=== PATIENT | female | born 1945 | race Caucasian/White ===

== ENCOUNTER 2019-05-21 14:44 | Emergency (ER) | payer MEDICARE, OTHER, SELFPAY ==
--- NOTE | 2019-05-21 14:59 | ED.FALL ---
HPI - Fall General Chief Complaint: Fall Stated Complaint: GLF Time Seen by Provider: 05/21/19 14:49 Source: EMS Mode of arrival: EMS Limitations: no limitations History of Present Illness HPI Narrative: Patient is a 73-year-old female who presents with by bilateral arm pain. She was caring a tray when she tripped and fell and landed with both her arms above her. She has severe pain left arm is held superiorly over her face. She has no numbness or tingling in her hands. No other injury no head injury. No loss of consciousness no nausea. MD complaint: fall Onset (ago): minute(s) Fall from: standing Fall witnessed: yes, by family Place fall occurred: home Loss of consciousness: none Prolonged down time: no Related Data Home Medications Medication Instructions Recorded Confirmed Probiotic 1 cap PO DAILY #0 09/06/17 05/21/19 ascorbic acid (vitamin C) 1 tab PO DAILY #0 09/06/17 05/21/19 multivitamin [Multiple Vitamins] 1 tab PO DAILY #0 09/06/17 05/21/19 turmeric 1 tab PO DAILY #0 09/06/17 05/21/19 Glucosamine Chondroitin 1 tab PO DAILY 05/21/19 05/21/19 Vitamin D3 1 cap PO DAILY 05/21/19 05/21/19 diclofenac sodium 75 mg PO BID 05/21/19 05/21/19 krill oil 1 cap PO DAILY 05/21/19 05/21/19 Previous Rx's Medication Instructions Recorded cyclobenzaprine 5 mg PO TID PRN #10 tab 05/21/19 hydrocodone-acetaminophen [[place]] 1 tab PO Q6H PRN #10 tab 05/21/19 Allergies Allergy/AdvReac Type Severity Reaction Status Date / Time No Known Allergies Allergy Uncoded 01/16/18 13:11 Review of Systems Review of Systems GENERAL: Denies chills,fever HEENT: Denies throat pain RESPIRATORY: Denies dyspnea, cough, wheezing CARDIOVASCULAR: Denies chest pain, palpitations GASTROINTESTINAL: Denies nausea, vomiting MUSCULOSKELETAL: See HPI SKIN: No rash, no laceration, no pruritus NEUROLOGIC: Denies weakness, dizziness, headache, numbness 8 point review of systems is negative except for those stated above and HPI Exam Initial Vital Signs Initial Vital Signs: Vital Signs Pulse Rate 79 05/21/19 15:00 Respiratory Rate 19 05/21/19 15:00 Blood Pressure 121/66 05/21/19 15:00 Pulse Oximetry 94 05/21/19 15:00 GENERAL: Appears in and in no acute distress. HEENT: Head atraumatic,EOMI, pupils reactive, face symmetric CARDIOVASCULAR: Regular rate and rhythm without murmurs, rubs or gallops. RESPIRATORY: Breath sounds equal bilaterally, no wheezes rales or rhonchi. ABDOMEN: Soft, nontender. Normoactive bowel sounds all 4 quadrants. No guarding or rebound. EXTREMITIES: Normal range of motion, no clubbing or edema. Neurovascularly intact Left arm held in flexion with forearm over for head, right arm by side. Bilateral shoulder deformities. Peripheral pulses intact in bilateral distal radial pulses. Sensation over both felt voice intact NEUROLOGICAL: Alert and oriented x4. SKIN: Warm, dry, no laceration, no petechiae, no rashes or lesions. [facility] Medical History Patient denies significant medical history (Acute) Social History (Updated 05/21/19 @ 18:53 by Shelley Rothman DO) Smoking Status: Never smoker alcohol intake: current Social History Smoking Status: Never smoker alcohol intake: current Procedures Orthopedic Joint Reduction Joint #1: Time Out Performed: Yes Side: left Joint Reduction Location: shoulder Analgesia: procedural sedation Shoulder Technique Used (if applicable): traction/counter-traction Technique used: direct manipulation Post-reduction neuro exam: intact Post-reduction vascular: intact Post Reduction X-Ray Obtained: Yes Post Reduction X-Ray Results: reduced Splint Applied: No Joint #2: Time Out Performed: Yes Side: right Joint Reduction Location: shoulder Analgesia: procedural sedation Shoulder Technique Used (if applicable): traction/counter-traction Technique used: direct manipulation Post-reduction neuro exam: intact Post-reduction vascular: intact Post Reduction X-Ray Obtained: Yes Post Reduction X-Ray Results: reduced Splint Applied: No Patient Tolerated Procedure: Well Procedural Sedation Patient Age: Patient is 5yrs or older Consent signed: Yes Time out performed: Yes Indication: fracture/dislocation reduction ASA Class: I Preparation: equipment monitor phototypesetting applied, pulse oximeter and capnometry used IV Etomidate dose (mg): 15 Intraservice time/total sedation time (min): 15 ED Sedation Level: Moderate (Concious) Patient Tolerated Procedure: Well Complications: none Course Orders Ordered: ED Orders 05/21/19 15:05 XR shoulder LT min 2V Stat XR shoulder RT min 2V Stat 05/21/19 17:00 XR shoulder LT min 2V Stat XR shoulder RT min 2V Stat Discontinued Medications Etomidate (Amidate) 10 mg IV NOW ONE Stop: 05/21/19 16:40 Last Admin: 05/21/19 16:46 Dose: 10 mg Hydromorphone HCl (Dilaudid) 1 mg IV NOW ONE Stop: 05/21/19 15:06 Last Admin: 05/21/19 15:16 Dose: 1 mg Hydromorphone HCl (Dilaudid) 0.5 mg IV NOW ONE Stop: 05/21/19 16:37 Last Admin: 05/21/19 16:39 Dose: 0.5 mg Ketorolac Tromethamine (Toradol) 30 mg IV NOW ONE Stop: 05/21/19 17:41 Last Admin: 05/21/19 17:47 Dose: 30 mg Vital Signs - 8 hr 05/21/19 15:00 05/21/19 16:50 05/21/19 16:52 Pulse Rate 79 101 H 78 Respiratory Rate 19 22 12 Blood Pressure [Right Arm] 121/66 132/79 134/92 H Pulse Oximetry 94 98 94 05/21/19 17:02 05/21/19 17:05 05/21/19 17:59 Pulse Rate 92 H 78 88 Respiratory Rate 12 17 16 Blood Pressure [Right Arm] 147/74 H 142/72 H 138/75 Pulse Oximetry 90 L 98 96 MDM - Fall Lab Data Point of Care Testing Test Results Not applicable Imaging Data right shoulder #1: Radiologist's impression: PROCEDURE: XR SHOULDER RT MIN 2V INDICATIONS: fall pain TECHNIQUE: 1 view of the shoulder were acquired. COMPARISON: None. FINDINGS: Bones: No convincing fracture identified. There is an anterior inferior right shoulder dislocation with the proximal right humeral head projecting over the mid scapula. Soft tissues: No suspicious soft tissue calcifications. IMPRESSION: Anterior right shoulder dislocation. Dictated by: Pineda López M.D. on 05/21/2019 at 16:03 left shoulder #2: Radiologist's impression: PROCEDURE: XR SHOULDER LT MIN 2V INDICATIONS: post reduction TECHNIQUE: 2 views of the shoulder were acquired. COMPARISON: , , XR SHOULDER LT MIN 2V, 05/21/2019, 15:08. , CR, XR SHOULDER RT MIN 2V, 05/21/2019, 17:08. , CR, XR SHOULDER RT MIN 2V, 05/21/2019, 15:08. FINDINGS: Bones: The left shoulder has been successfully reduced. There is irregularity seen involving the inferior glenoid. No additional focal bony abnormalities are seen. The visualized ribs are unremarkable. Age-appropriate bony degenerative changes are seen. No suspicious lytic or blastic lesions are seen. Soft tissues: No suspicious soft tissue calcifications. The visualized lung demonstrates an unremarkable appearance. IMPRESSION: Left shoulder relocation. Potential bony Bankart injury. If clinically appropriate, please consider a dedicated shoulder CT for further evaluation. Dictated by: Saad Neal M.D. on 05/21/2019 at 16:30 right shoulder #2: Radiologist's impression: PROCEDURE: XR SHOULDER RT MIN 2V INDICATIONS: post redution TECHNIQUE: 2 views of the shoulder were acquired. COMPARISON: , , XR SHOULDER RT MIN 2V, 05/21/2019, 15:08. , , XR SHOULDER LT MIN 2V, 05/21/2019, 15:08. , , XR SHOULDER LT MIN 2V, 05/21/2019, 17:08. FINDINGS: Bones: The right shoulder has been relocated. No definite bony injury is seen. Degenerative changes are seen, including mild to moderate subacromial spurring. The visualized ribs are unremarkable. Soft tissues: No suspicious soft tissue calcifications. The visualized lung demonstrates an unremarkable appearance. IMPRESSION: Successful right shoulder relocation. If there is strong clinical concern for a bony injury, then please consider a dedicated shoulder CT for further evaluation. Dictated by: Saad Neal M.D. on 05/21/2019 at 16:31 left shoudler #1: Radiologist's impression: PROCEDURE: XR SHOULDER LT MIN 2V INDICATIONS: fall pain TECHNIQUE: One view of the left shoulder was acquired. COMPARISON: , , XR SHOULDER RT MIN 2V, 05/21/2019, 15:08. FINDINGS: Bones: There is an inferior dislocation of the left proximal humeral head relative to the glenoid with the left humerus externally abducted. This likely represents an anterior left shoulder dislocation, although this cannot be directly confirmed given that only a single AP view was provided. Soft tissues: No suspicious soft tissue calcifications. IMPRESSION: Acute inferior and likely anterior left shoulder dislocation, although the exam is limited by only a single AP view been provided. Dictated by: Pineda López M.D. on 05/21/2019 at 16:05 MDM Narrative Medical decision making narrative: Patient has obvious bilateral shoulder injuries and deformities. No injuries. Patient's shoulders have been successfully reduced. She is still quite sore but she is able to move them neurovascularly intact both before and after reduction. I discussed with her by movement of both her shoulders will help. Discharge Plan Departure Patient Disposition: Home Clinical Impression: Dislocation of shoulder region Qualifiers: Encounter type: initial encounter Laterality: unspecified laterality Qualified Code(s): S43.006A - Unspecified dislocation of unspecified shoulder joint, initial encounter Discharge Date/Time: 05/21/19 18:36 Interventions: ED Discharge Assessment Last Done: 05/21/19 18:35 Instructions: DI for Shoulder Dislocation Activity Restrictions/Additional Instructions: *You have been diagnosed with bilateral shoulder dislocation *What to do: Increased movement of the shoulders as tolerated. Expect to be sore for the next week. *Continue to take medications as directed [place] 1 tablet every 4 hours or 2 tablets every 6 *Follow up with your primary care provider in 2-3 days *Return to ER if you should have numbness tingling increased or any new, worsening or concerning symptoms CONTROLLED SUBSTANCE DISCHARGE (Narcotoic/benzodiazepine/Flexeril/Phenergan) 1. You have been prescribed narcotic medications, it does have acetaminophen/Tylenol/paracetamol in it so do not take extra Tylenol or Tylenol containing products 2. Please understand that we cannot provide further refills of narcotics, benzodiazepines or controlled substances through the ED and her pain management will need to be through your provider. 3. While on these medications you cannot drive or operate heavy machinery. 4. You cannot sign legal documents or perform any duties such as this. 5. As long as you're taking opiate pain medications he should also be taking a stool softener such as Colace, Dulcolax, MiraLAX or prune juice, to help avoid constipation. Prescriptions: New hydrocodone-acetaminophen [[place]] 5-325 mg tablet 1 tab PO Q6H PRN (Reason: pain) Qty: 10 RF: 0 cyclobenzaprine 5 mg tablet 5 mg PO TID PRN (Reason: muscle spasm) Qty: 10 RF: 0 No Action multivitamin [Multiple Vitamins] 1 EACH tablet 1 tab PO DAILY Qty: 0 RF: 0 ascorbic acid (vitamin C) 500 mg Tablet 1 tab PO DAILY Qty: 0 RF: 0 Probiotic 1 cap PO DAILY Qty: 0 RF: 0 turmeric 1 tab PO DAILY Qty: 0 RF: 0 diclofenac sodium 75 mg tablet,delayed release (DR/EC) 75 mg PO BID RF: 0 Glucosamine Chondroitin 1 tab PO DAILY RF: 0 Vitamin D3 1 cap PO DAILY RF: 0 krill oil 1 cap PO DAILY RF: 0 Referrals: [facility] [Outside] Joe Jones MD [Physician] -
[2019-05-21 15:00] VITALS: BP 121/66; PULSE 79; RESP 19; O2SAT 94
--- NOTE | 2019-05-21 15:05 | ED_ITS ---
HPI - Fall General Chief Complaint: Fall Stated Complaint: GLF Time Seen by Provider: 05/21/19 14:49 Source: EMS Mode of arrival: EMS Limitations: no limitations History of Present Illness HPI Narrative: Patient is a 73-year-old female who presents with by bilateral arm pain. She was caring a tray when she tripped and fell and landed with both her arms above her. She has severe pain left arm is held superiorly over her face. She has no numbness or tingling in her hands. No other injury no head injury. No loss of consciousness no nausea. MD complaint: fall Onset (ago): minute(s) Fall from: standing Fall witnessed: yes, by family Place fall occurred: home Loss of consciousness: none Prolonged down time: no Related Data Home Medications Medication Instructions Recorded Confirmed Probiotic 1 cap PO DAILY #0 09/06/17 05/21/19 ascorbic acid (vitamin C) 1 tab PO DAILY #0 09/06/17 05/21/19 multivitamin [Multiple Vitamins] 1 tab PO DAILY #0 09/06/17 05/21/19 turmeric 1 tab PO DAILY #0 09/06/17 05/21/19 Glucosamine Chondroitin 1 tab PO DAILY 05/21/19 05/21/19 Vitamin D3 1 cap PO DAILY 05/21/19 05/21/19 diclofenac sodium 75 mg PO BID 05/21/19 05/21/19 krill oil 1 cap PO DAILY 05/21/19 05/21/19 Previous Rx's Medication Instructions Recorded cyclobenzaprine 5 mg PO TID PRN #10 tab 05/21/19 hydrocodone-acetaminophen [[place]] 1 tab PO Q6H PRN #10 tab 05/21/19 Allergies Allergy/AdvReac Type Severity Reaction Status Date / Time No Known Allergies Allergy Uncoded 01/16/18 13:11 Review of Systems Review of Systems GENERAL: Denies chills,fever HEENT: Denies throat pain RESPIRATORY: Denies dyspnea, cough, wheezing CARDIOVASCULAR: Denies chest pain, palpitations GASTROINTESTINAL: Denies nausea, vomiting MUSCULOSKELETAL: See HPI SKIN: No rash, no laceration, no pruritus NEUROLOGIC: Denies weakness, dizziness, headache, numbness 8 point review of systems is negative except for those stated above and HPI Exam Initial Vital Signs Initial Vital Signs: Vital Signs Pulse Rate 79 05/21/19 15:00 Respiratory Rate 19 05/21/19 15:00 Blood Pressure 121/66 05/21/19 15:00 Pulse Oximetry 94 05/21/19 15:00 GENERAL: Appears in and in no acute distress. HEENT: Head atraumatic,EOMI, pupils reactive, face symmetric CARDIOVASCULAR: Regular rate and rhythm without murmurs, rubs or gallops. RESPIRATORY: Breath sounds equal bilaterally, no wheezes rales or rhonchi. ABDOMEN: Soft, nontender. Normoactive bowel sounds all 4 quadrants. No guarding or rebound. EXTREMITIES: Normal range of motion, no clubbing or edema. Neurovascularly intact Left arm held in flexion with forearm over for head, right arm by side. Bilateral shoulder deformities. Peripheral pulses intact in bilateral distal radial pulses. Sensation over both felt voice intact NEUROLOGICAL: Alert and oriented x4. SKIN: Warm, dry, no laceration, no petechiae, no rashes or lesions. [facility] Medical History Patient denies significant medical history (Acute) Social History (Updated 05/21/19 @ 18:53 by Shelley Rothman DO) Smoking Status: Never smoker alcohol intake: current Social History Smoking Status: Never smoker alcohol intake: current Procedures Orthopedic Joint Reduction Joint #1: Time Out Performed: Yes Side: left Joint Reduction Location: shoulder Analgesia: procedural sedation Shoulder Technique Used (if applicable): traction/counter-traction Technique used: direct manipulation Post-reduction neuro exam: intact Post-reduction vascular: intact Post Reduction X-Ray Obtained: Yes Post Reduction X-Ray Results: reduced Splint Applied: No Joint #2: Time Out Performed: Yes Side: right Joint Reduction Location: shoulder Analgesia: procedural sedation Shoulder Technique Used (if applicable): traction/counter-traction Technique used: direct manipulation Post-reduction neuro exam: intact Post-reduction vascular: intact Post Reduction X-Ray Obtained: Yes Post Reduction X-Ray Results: reduced Splint Applied: No Patient Tolerated Procedure: Well Procedural Sedation Patient Age: Patient is 5yrs or older Consent signed: Yes Time out performed: Yes Indication: fracture/dislocation reduction ASA Class: I Preparation: playground monitor applied, pulse oximeter and capnometry used IV Etomidate dose (mg): 15 Intraservice time/total sedation time (min): 15 ED Sedation Level: Moderate (Concious) Patient Tolerated Procedure: Well Complications: none Course Orders Ordered: ED Orders 05/21/19 15:05 XR shoulder LT min 2V Stat XR shoulder RT min 2V Stat 05/21/19 17:00 XR shoulder LT min 2V Stat XR shoulder RT min 2V Stat Discontinued Medications Etomidate (Amidate) 10 mg IV NOW ONE Stop: 05/21/19 16:40 Last Admin: 05/21/19 16:46 Dose: 10 mg Hydromorphone HCl (Dilaudid) 1 mg IV NOW ONE Stop: 05/21/19 15:06 Last Admin: 05/21/19 15:16 Dose: 1 mg Hydromorphone HCl (Dilaudid) 0.5 mg IV NOW ONE Stop: 05/21/19 16:37 Last Admin: 05/21/19 16:39 Dose: 0.5 mg Ketorolac Tromethamine (Toradol) 30 mg IV NOW ONE Stop: 05/21/19 17:41 Last Admin: 05/21/19 17:47 Dose: 30 mg Vital Signs - 8 hr 05/21/19 15:00 05/21/19 16:50 05/21/19 16:52 Pulse Rate 79 101 H 78 Respiratory Rate 19 22 12 Blood Pressure [Right Arm] 121/66 132/79 134/92 H Pulse Oximetry 94 98 94 05/21/19 17:02 05/21/19 17:05 05/21/19 17:59 Pulse Rate 92 H 78 88 Respiratory Rate 12 17 16 Blood Pressure [Right Arm] 147/74 H 142/72 H 138/75 Pulse Oximetry 90 L 98 96 MDM - Fall Lab Data Point of Care Testing Test Results Not applicable Imaging Data right shoulder #1: Radiologist's impression: PROCEDURE: XR SHOULDER RT MIN 2V INDICATIONS: fall pain TECHNIQUE: 1 view of the shoulder were acquired. COMPARISON: None. FINDINGS: Bones: No convincing fracture identified. There is an anterior inferior right shoulder dislocation with the proximal right humeral head projecting over the mid scapula. Soft tissues: No suspicious soft tissue calcifications. IMPRESSION: Anterior right shoulder dislocation. Dictated by: Pineda López M.D. on 05/21/2019 at 16:03 left shoulder #2: Radiologist's impression: PROCEDURE: XR SHOULDER LT MIN 2V INDICATIONS: post reduction TECHNIQUE: 2 views of the shoulder were acquired. COMPARISON: [facility], , XR SHOULDER LT MIN 2V, 05/21/2019, 15:08. [facility], CR, XR SHOULDER RT MIN 2V, 05/21/2019, 17:08. [facility], CR, XR SHOULDER RT MIN 2V, 05/21/2019, 15:08. FINDINGS: Bones: The left shoulder has been successfully reduced. There is irregularity seen involving the inferior glenoid. No additional focal bony abnormalities are seen. The visualized ribs are unremarkable. Age-appropriate bony degenerative changes are seen. No suspicious lytic or blastic lesions are seen. Soft tissues: No suspicious soft tissue calcifications. The visualized lung demonstrates an unremarkable appearance. IMPRESSION: Left shoulder relocation. Potential bony Bankart injury. If clinically appropriate, please consider a dedicated shoulder CT for further evaluation. Dictated by: Saad Neal M.D. on 05/21/2019 at 16:30 right shoulder #2: Radiologist's impression: PROCEDURE: XR SHOULDER RT MIN 2V INDICATIONS: post redution TECHNIQUE: 2 views of the shoulder were acquired. COMPARISON: [facility], , XR SHOULDER RT MIN 2V, 05/21/2019, 15:08. [facility], , XR SHOULDER LT MIN 2V, 05/21/2019, 15:08. [facility], , XR SHOULDER LT MIN 2V, 05/21/2019, 17:08. FINDINGS: Bones: The right shoulder has been relocated. No definite bony injury is seen. Degenerative changes are seen, including mild to moderate subacromial spurring. The visualized ribs are unremarkable. Soft tissues: No suspicious soft tissue calcifications. The visualized lung demonstrates an unremarkable appearance. IMPRESSION: Successful right shoulder relocation. If there is strong clinical concern for a bony injury, then please consider a dedicated shoulder CT for further evaluation. Dictated by: Saad Neal M.D. on 05/21/2019 at 16:31 left shoudler #1: Radiologist's impression: PROCEDURE: XR SHOULDER LT MIN 2V INDICATIONS: fall pain TECHNIQUE: One view of the left shoulder was acquired. COMPARISON: [facility], , XR SHOULDER RT MIN 2V, 05/21/2019, 15:08. FINDINGS: Bones: There is an inferior dislocation of the left proximal humeral head relative to the glenoid with the left humerus externally abducted. This likely represents an anterior left shoulder dislocation, although this cannot be directly confirmed given that only a single AP view was provided. Soft tissues: No suspicious soft tissue calcifications. IMPRESSION: Acute inferior and likely anterior left shoulder dislocation, although the exam is limited by only a single AP view been provided. Dictated by: Pineda López M.D. on 05/21/2019 at 16:05 MDM Narrative Medical decision making narrative: Patient has obvious bilateral shoulder injuries and deformities. No injuries. Patient's shoulders have been successfully reduced. She is still quite sore but she is able to move them neurovascularly intact both before and after reduction. I discussed with her by movement of both her shoulders will help. Discharge Plan Departure Patient Disposition: Home Clinical Impression: Dislocation of shoulder region Qualifiers: Encounter type: initial encounter Laterality: unspecified laterality Qualified Code(s): S43.006A - Unspecified dislocation of unspecified shoulder joint, initial encounter Discharge Date/Time: 05/21/19 18:36 Interventions: ED Discharge Assessment Last Done: 05/21/19 18:35 Instructions: DI for Shoulder Dislocation Activity Restrictions/Additional Instructions: *You have been diagnosed with bilateral shoulder dislocation *What to do: Increased movement of the shoulders as tolerated. Expect to be sore for the next week. *Continue to take medications as directed [place] 1 tablet every 4 hours or 2 tablets every 6 *Follow up with your primary care provider in 2-3 days *Return to ER if you should have numbness tingling increased or any new, worsening or concerning symptoms CONTROLLED SUBSTANCE DISCHARGE (Narcotoic/benzodiazepine/Flexeril/Phenergan) 1. You have been prescribed narcotic medications, it does have acetaminophen/Tylenol/paracetamol in it so do not take extra Tylenol or Tylenol containing products 2. Please understand that we cannot provide further refills of narcotics, benzo diazepines or controlled substances through the ED and her pain management will need to be through your provider. 3. While on these medications you cannot drive or operate heavy machinery. 4. You cannot sign legal documents or perform any duties such as this. 5. As long as you're taking opiate pain medications he should also be taking a stool softener such as Colace, Dulcolax, MiraLAX or prune juice, to help avoid constipation. Prescriptions: New hydrocodone-acetaminophen [[place]] 5-325 mg tablet 1 tab PO Q6H PRN (Reason: pain) Qty: 10 RF: 0 cyclobenzaprine 5 mg tablet 5 mg PO TID PRN (Reason: muscle spasm) Qty: 10 RF: 0 No Action multivitamin [Multiple Vitamins] 1 EACH tablet 1 tab PO DAILY Qty: 0 RF: 0 ascorbic acid (vitamin C) 500 mg Tablet 1 tab PO DAILY Qty: 0 RF: 0 Probiotic 1 cap PO DAILY Qty: 0 RF: 0 turmeric 1 tab PO DAILY Qty: 0 RF: 0 diclofenac sodium 75 mg tablet,delayed release (DR/EC) 75 mg PO BID RF: 0 Glucosamine Chondroitin 1 tab PO DAILY RF: 0 Vitamin D3 1 cap PO DAILY RF: 0 krill oil 1 cap PO DAILY RF: 0 Referrals: [facility] [Outside] Joe Jones MD [Physician] -
[2019-05-21] MEDS: HYDROMORPHONE 1 MG INJ IV (15:16)
[2019-05-21] MEDS: HYDROMORPHONE 0.5 MG INJ IV (16:39)
[2019-05-21] MEDS: ETOMIDATE 2 MG/ML 10 ML VIAL 10 MG IV (16:46)
--- NOTE | 2019-05-21 16:47 | PC.NURSE ---
[employer] MEREDITH verified Etomidate 10mg.
[2019-05-21 16:50] VITALS: BP 132/79; PULSE 101; PULSE 68; RESP 12; RESP 22; O2SAT 98
[2019-05-21 16:52] VITALS: BP 134/92; PULSE 78; RESP 12; O2SAT 94
--- NOTE | 2019-05-21 17:00 | DI.RAD.S_ITS ---
PROCEDURE: XR SHOULDER RT MIN 2V INDICATIONS: post redution TECHNIQUE: 2 views of the shoulder were acquired. COMPARISON: [facility], CR, XR SHOULDER RT MIN 2V, 05/21/2019, 15:08. [facility], CR, XR SHOULDER LT MIN 2V, 05/21/2019, 15:08. [facility], CR, XR SHOULDER LT MIN 2V, 05/21/2019, 17:08. FINDINGS: Bones: The right shoulder has been relocated. No definite bony injury is seen. Degenerative changes are seen, including mild to moderate subacromial spurring. The visualized ribs are unremarkable. Soft tissues: No suspicious soft tissue calcifications. The visualized lung demonstrates an unremarkable appearance. IMPRESSION: Successful right shoulder relocation. If there is strong clinical concern for a bony injury, then please consider a dedicated shoulder CT for further evaluation. Dictated by: Saad Neal M.D. on 05/21/2019 at 16:31 Approved by: Saad Nela M.D. on 05/21/2019 at 16:32
--- NOTE | 2019-05-21 17:00 | DI.RAD.S_ITS ---
PROCEDURE: XR SHOULDER LT MIN 2V INDICATIONS: post reduction TECHNIQUE: 2 views of the shoulder were acquired. COMPARISON: [facility], CR, XR SHOULDER LT MIN 2V, 05/21/2019, 15:08. [facility], CR, XR SHOULDER RT MIN 2V, 05/21/2019, 17:08. [facility], CR, XR SHOULDER RT MIN 2V, 05/21/2019, 15:08. FINDINGS: Bones: The left shoulder has been successfully reduced. There is irregularity seen involving the inferior glenoid. No additional focal bony abnormalities are seen. The visualized ribs are unremarkable. Age-appropriate bony degenerative changes are seen. No suspicious lytic or blastic lesions are seen. Soft tissues: No suspicious soft tissue calcifications. The visualized lung demonstrates an unremarkable appearance. IMPRESSION: Left shoulder relocation. Potential bony Bankart injury. If clinically appropriate, please consider a dedicated shoulder CT for further evaluation. Dictated by: Saad Neal M.D. on 05/21/2019 at 16:30 Approved by: Saad Neal M.D. on 05/21/2019 at 16:31
[2019-05-21 17:02] VITALS: BP 147/74; PULSE 92; RESP 12; O2SAT 90
[2019-05-21 17:05] VITALS: BP 142/72; PULSE 78; RESP 17; O2SAT 98
[2019-05-21] MEDS: KETOROLAC 60 MG/2 ML VIAL 30 MG IV (17:47)
[2019-05-21 17:59] VITALS: BP 138/75; PULSE 88; RESP 16; O2SAT 96
== END 2019-05-21 18:36 | disposition home or self-care (01) ==
PROVIDERS: Emergency Provider Emergency Medicine
DX: S43.006A Unspecified dislocation of unspecified shoulder joint, initial encounter (principal); W18.30XA Fall on same level, unspecified, initial encounter
CPT/HCPCS: 23650; 73030; 94770; 96374; 96375; 96376; 99152; 99283; 99284; J1170; J1885

== ENCOUNTER → 2019-06-26 08:54 | Outpatient (CLI) | payer MEDICARE, OTHER, SELFPAY ==
--- NOTE | 2019-06-26 | DI.MRI.S_ITS ---
PROCEDURE: MR SHOULDER LT WO CON INDICATIONS: Strain of muscle and tendon of the rotator cuff TECHNIQUE: Noncontrast oblique coronal T2 fast spin echo with fat saturation, oblique sagittal T1 spin echo and T2 fast spin echo with fat saturation, axial T1 spin echo and T2 fast spin echo with fat saturation through the shoulder. COMPARISON: [facility], CR, XR SHOULDER 2+ VIEWS BILATERAL, 05/27/2019, 16:18. FINDINGS: Image quality: Diagnostic. Rotator cuff: There is a large full-thickness tear of the rotator cuff with a complete tear evident involving the supraspinatus tendon that measures at least 3.7 cm in transverse dimension with retraction of the torn tendon fragments to approximately the mid acromial level by approximately 2.8 cm. An irregular intrasubstance moderate to high-grade partial-thickness tear of the posterior distal infraspinatus tendon is present. The anterior distal infraspinatus tendon fibers are probably completely torn. The subscapularis tendon is intact and otherwise unremarkable. The teres minor tendon appears to be intact. There is edema evident involving the supraspinatus, infraspinatus, and teres minor muscles. Mild corresponding muscle atrophy is present involving these 3 muscles. The subscapularis muscle is unremarkable. Bones and bursae: There is moderate marrow edema identified involving the anterior aspect of the humeral head that involves the lesser tuberosity. An irregular impacted fracture is present. Posterior subluxation of the humeral head with respect to the glenoid is present. No displaced glenoid fractures are appreciated. There is a large glenohumeral joint effusion that communicates with the subacromial subdeltoid bursa. Mild to moderate degenerative changes of the glenohumeral and acromioclavicular joints are present. Capsule and soft tissues: Evaluation of the labrum and the glenohumeral ligaments is suboptimal without intra-articular contrast. The labrum has a diminutive appearance, likely representing chronic labral degeneration. There may be a very small anterosuperior labral tear. The long head of the biceps tendon is thickened and edematous with a linear area of increased signal extending along the intra-articular portion of the tendon, compatible with a longitudinal split tear. Mild edema about the inferior glenohumeral ligament is suspicious for ligamentous sprain. The other glenohumeral ligaments are not adequately evaluated. Edema of the superior lateral deltoid muscle is present. IMPRESSION: 1. Large full-thickness tear of the superior rotator cuff involving the supraspinatus and infraspinatus tendons. 2. Moderate to high-grade intrasubstance/delaminating partial-thickness tearing involving the posterior distal infraspinatus tendon fibers. 3. Mildly impacted fracture involving the lesser tuberosity of the anterior humeral head. No dislocation. 4. Long segment longitudinal split tear of the long head of the biceps tendon with corresponding prominent tendinopathy. 5. Probable inferior glenohumeral ligament sprain. 6. Diminutive appearance of the labrum may be related to previous labral injuries. There may be a small anterosuperior labral tear. 7. Large glenohumeral joint effusion with fluid extending into the subacromial subdeltoid bursa. 8. Edema involving the deltoid muscles and the superior rotator cuff muscles suggests a muscle strains. Dictated by: Teofilo Serrato M.D. on 06/26/2019 at 9:23 Approved by: Teofilo Serrato M.D. on 06/26/2019 at 9:34
== END ==
PROVIDERS: Visit Provider Orthopaedic Surgery
DX: S46.012A Strain of muscle(s) and tendon(s) of the rotator cuff of left shoulder, initial encounter (principal); S42.252A Displaced fracture of greater tuberosity of left humerus, initial encounter for closed fracture; S46.112A Strain of muscle, fascia and tendon of long head of biceps, left arm, initial encounter; M25.412 Effusion, left shoulder
CPT/HCPCS: 73221

== ENCOUNTER → 2019-08-15 10:01 | Outpatient (CLI) | payer MEDICARE, OTHER, SELFPAY ==
[2019-08-15 10:53] LABS: Add Manual Diff / Slide Review NO; Basophils Absolute Auto 100 /uL (0-100); Basophils Percent Auto 1.8 % (0-2); Eosinophils Absolute Auto 100 /uL (0-450); Eosinophils Percent Auto 2.7 % (2-4); Hematocrit 42.8 % (36-46); Hemoglobin 14.3 g/dL (12.0-16.0); Lymphocytes Absolute Auto 1800 /uL (1100-4500); Lymphocytes Percent Auto 33.3 % (25-40); Mean Corpuscular HGB Conc 33.5 % (30-36); Mean Corpuscular Hemoglobin 31.9 PG (26-34); Mean Corpuscular Volume 95.1 fL (80-100); Monocytes Absolute Auto 500 /uL (0-900); Monocytes Percent Auto 10.1 % (3-14); Neutrophils Absolute Auto 2800 /uL (1500-7000); Neutrophils Percent Auto 52.1 % (50-75); Platelet Count 291 X10^3/uL (150-400); Red Cell Distribution Width 13.2 % (11.6-14.8); White Blood Cell Count 5.4 X10^3/uL (4.5-11.0)
[2019-08-15 10:56] LABS: Hemoglobin A1C% w Est Avg Glu 5.6 % (4.0-6.0)
[2019-08-15 11:02] LABS: Alanine Aminotransferase 49 IU/L (<35); Albumin 4.8 g/dL (3.5-5.0); Albumin Globulin Ratio 1.7 (1.0-2.8); Alkaline Phosphatase 69 U/L (38-126); Aspartate Aminotransferase 38 IU/L (14-36); Bilirubin Total 0.4 mg/dL (0.2-1.3); Blood Urea Nitrogen 19 mg/dL (7-17); Calcium 9.7 mg/dL (8.4-10.2); Carbon Dioxide 27 mmol/L (22-32); Chloride 105 mmol/L (98-107); Cholesterol 244 mg/dL (140-199); Estimated Glomerular Filt Rate > 60.0 mL/min (>60); Globulin 2.8 g/dL (1.7-4.1); Glucose 114 mg/dL (80-110); HDL Cholesterol 51 mg/dL (40-60); HEMOLYSIS < 15 (0-50); LDL Cholesterol Calculated 171 mg/dL (<100); Potassium 4.1 mmol/L (3.4-5.1); Sodium 140 mmol/L (137-145); Total Protein 7.6 g/dL (6.3-8.2); Triglycerides 108 mg/dL (35-150)
[2019-08-15 11:38] LABS: TSH w/ Reflex to FT4 3.36 uIU/mL (0.47-4.68)
== END ==
PROVIDERS: PCP Physician Assistant; Visit Provider Physician Assistant
DX: R03.0 Elevated blood-pressure reading, without diagnosis of hypertension (principal); E78.2 Mixed hyperlipidemia; R00.0 Tachycardia, unspecified
CPT/HCPCS: 36415; 80053; 80061; 83036; 83735; 84443; 85025

== ENCOUNTER → 2020-12-17 11:09 | Outpatient (CLI) | payer MEDICARE, OTHER, SELFPAY ==
[2020-12-17] MEDS: COVID-19 VACC, Ad26(JANSSEN)/PF 0.5 ML IM (11:32)
== END ==
PROVIDERS: PCP Physician Assistant; Visit Provider Internal Medicine
DX: Z23 Encounter for immunization (principal)
CPT/HCPCS: 0031A; 91303

== ENCOUNTER → 2021-01-04 10:08 | Outpatient (CLI) | payer MEDICARE, OTHER, SELFPAY ==
[2021-01-04 10:49] LABS: Add Manual Diff / Slide Review NO; Basophils Absolute Auto 100 /uL (0-100); Basophils Percent Auto 1.1 % (0-2); Eosinophils Absolute Auto 200 /uL (0-450); Eosinophils Percent Auto 3.1 % (2-4); Hematocrit 42.5 % (36-46); Hemoglobin 14.3 g/dL (12.0-16.0); Lymphocytes Absolute Auto 1900 /uL (1100-4500); Lymphocytes Percent Auto 27.7 % (25-40); Mean Corpuscular HGB Conc 33.7 % (30-36); Mean Corpuscular Volume 95.2 fL (80-100); Monocytes Absolute Auto 700 /uL (0-900); Neutrophils Absolute Auto 4000 /uL (1500-7000); Neutrophils Percent Auto 58.1 % (50-75); Platelet Count 244 X10^3/uL (150-400); Red Blood Cell Count 4.47 X10^6/uL (4.0-5.2); Red Cell Distribution Width 12.7 % (11.6-14.8); White Blood Cell Count 6.9 X10^3/uL (4.5-11.0)
[2021-01-04 11:29] LABS: Alanine Aminotransferase 66 IU/L (<35); Albumin 4.5 g/dL (3.5-5.0); Albumin Globulin Ratio 1.6 (1.0-2.8); Alkaline Phosphatase 70 U/L (38-126); Aspartate Aminotransferase 46 IU/L (14-36); BUN Creatinine Ratio 35.6 (6-22); Bilirubin Total 0.5 mg/dL (0.2-1.3); Blood Urea Nitrogen 21 mg/dL (7-17); Carbon Dioxide 28 mmol/L (22-32); Chloride 105 mmol/L (98-107); Cholesterol 158 mg/dL (140-199); Estimated Glomerular Filt Rate > 60.0 mL/min (>60); Globulin 2.9 g/dL (1.7-4.1); Glucose 122 mg/dL (80-110); HDL Cholesterol 56 mg/dL (40-60); HEMOLYSIS < 15 (0-50); LDL Cholesterol Calculated 79 mg/dL (<100); Potassium 4.3 mmol/L (3.4-5.1); Sodium 141 mmol/L (137-145); Total Protein 7.4 g/dL (6.3-8.2); Triglycerides 114 mg/dL (35-150)
== END ==
PROVIDERS: PCP Physician Assistant; Referring Provider Physician Assistant; Visit Provider Physician Assistant
DX: E78.2 Mixed hyperlipidemia (principal)
CPT/HCPCS: 36415; 80053; 80061; 85025

== ENCOUNTER → 2022-10-11 08:29 | Outpatient (CLI) | payer MEDICARE, OTHER, SELFPAY ==
--- NOTE | 2022-10-11 | DI.US.S_ITS ---
PROCEDURE: US ABDOMEN LIMITED INDICATIONS: ELEVATED LFT'S TECHNIQUE: Real-time scanning was performed of the abdominal and retroperitoneal organs, with image documentation. COMPARISON: None. FINDINGS: Liver: Liver is normal in size and homogeneous in echotexture. Gallbladder: There is no gallstone. No gallbladder wall thickening or pericholecystic fluid. No sonographic Bass's sign. Biliary ducts: Intrahepatic bile ducts are non-dilated. Extrahepatic bile duct caliber measures 3.8 mm. Normal is 6-7 mm or less in diameter, or 10 mm or less post-cholecystectomy. Pancreas: Visualized portions of the pancreas are sonographically normal. IMPRESSION: Unremarkable ultrasound examination of right upper quadrant abdomen. Dictated by: Gallo Robertson M.D. on 10/11/2022 at 9:41 Approved by: Gallo Robertson M.D. on 10/11/2022 at 9:50
== END ==
PROVIDERS: PCP Physician Assistant; Referring Provider Physician Assistant; Visit Provider Physician Assistant
DX: R79.89 Other specified abnormal findings of blood chemistry (principal)
CPT/HCPCS: 76705

== ENCOUNTER 2023-04-24 14:53 | Emergency (ER) | payer MEDICARE, OTHER, SELFPAY ==
--- NOTE | 2023-04-24 | DI.CT.S_ITS ---
PROCEDURE: CT SHOULDER LEFT WITHOUT CON INDICATIONS: DISLOCATION TECHNIQUE: Noncontrast 1-1.5 mm thick sections acquired from the acromioclavicular joint to the inferior scapula, with coronal and sagittal reformatting. COMPARISON: [facility], CR, XR SHOULDER LT MIN 2V, 04/24/2023, 15:14. FINDINGS: Image quality: Excellent. Bones: There is an acute comminuted fracture involving left humeral head as well as surgical neck of proximal humeral shaft. Superior and anterior migration of proximal humeral shaft is seen with up to 7 mm impaction at fracture site. Fracture lines are seen extending to involve both greater and lesser tuberosities with medial and inferior displacement of lesser tuberosity fragment and lateral displacement of greater tuberosity fragments. Moderate acromioclavicular joint and glenohumeral joint osteoarthritic changes are seen. No dislocation. No other fracture is seen. Visualized left ribs are intact. Soft tissues: There is no gross full-thickness rotator cuff tendon rupture. Moderate amount of joint effusion is seen suggestive of hemarthrosis. No calcified intra-articular loose bodies. No significant rotator cuff muscle atrophy. IMPRESSION: 1. Acute comminuted fracture involving left proximal humeral shaft and humeral head with multiple displaced fragments as described above consistent with a 4 part fracture. 2. Moderate lipohemarthrosis. No gross calcified intra-articular loose bodies. 3. 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 No dislocation. 4. No gross full-thickness rotator cuff tendon rupture. No significant rotator cuff muscle atrophy. No abnormal soft tissue calcifications. Dictated by: Gallo Robertson M.D. on 04/24/2023 at 16:58 Approved by: Gallo Robertson M.D. on 04/24/2023 at 17:03
[2023-04-24 14:55] VITALS: BP 148/69; PULSE 72; RESP 18; TEMP 37; O2SAT 96; BMI 24.7
--- NOTE | 2023-04-24 15:13 | DI.CT.S_ITS ---
PROCEDURE: CT CERVICAL SPINE WO CON INDICATIONS: fall with head injury TECHNIQUE: Noncontrast 3 mm thick sections acquired from the skull base to the T4 level. Sagittal and coronal reformats were then constructed. For radiation dose reduction, the following was used: automated exposure control, adjustment of mA and/or kV according to patient size. COMPARISON: None. FINDINGS: Image quality: Excellent. Bones: No fractures or dislocations. Visualized superior ribs are intact. Multilevel degenerative changes. Soft tissues: Prevertebral soft tissues are normal in thickness. No paravertebral hematomas. No apical pneumothoraces. Left upper lobe pulmonary bulla is present. IMPRESSION: Multilevel degenerative changes without visualized fracture. Dictated by: Love Chapa M.D. on 04/24/2023 at 17:09 Approved by: Love Chapa M.D. on 04/24/2023 at 17:10
--- NOTE | 2023-04-24 15:13 | DI.CT.S_ITS ---
PROCEDURE: CT HEAD/BRAIN WO CON INDICATIONS: fall with head injury TECHNIQUE: Noncontrast 4.5 mm thick angled axial sections acquired from the foramen magnum to the vertex, with coronal and sagittal reformats. For radiation dose reduction, the following was used: automated exposure control, adjustment of mA and/or kV according to patient size. COMPARISON: None. FINDINGS: Image quality: Excellent. CSF spaces: Basal cisterns are patent. No extra-axial fluid collections. The ventricles are symmetric in size and shape. Brain: No intracranial bleeds or masses. There is cerebral volume loss for age, with resultant ventricular and sulcal prominence. There are periventricular and deep white matter chronic small vessel ischemic changes. There is intracranial internal carotid artery atherosclerosis. Skull and face: Calvarium and visualized facial bones appear intact, without suspicious lesions. Sinuses: Visualized sinuses demonstrate minimal mucosal thickening. IMPRESSION: 1. No acute intracranial process. 2. Moderate atrophy and chronic microvascular ischemic changes. Dictated by: Love Chapa M.D. on 04/24/2023 at 16:45 Approved by: Love Chapa M.D. on 04/24/2023 at 16:46
--- NOTE | 2023-04-24 15:15 | DI.RAD.S_ITS ---
PROCEDURE: XR SHOULDER LT MIN 2V INDICATIONS: fall, possible dislocation TECHNIQUE: 2 views of the shoulder were acquired. COMPARISON: [facility], CR, XR SHOULDER LT MIN 2V, 05/21/2019, 17:08. FINDINGS: Bones: Probable nondisplaced fracture of the proximal left humerus. Visualized ribs appear intact. Soft tissues: No suspicious soft tissue calcifications. IMPRESSION: Probable nondisplaced fracture involving left proximal humerus. Recommend CT scan of the left shoulder for additional evaluation Dictated by: Tanya Unger MD, PhD on 04/24/2023 at 15:41 Approved by: Tanya Unger MD, PhD on 04/24/2023 at 15:42
--- NOTE | 2023-04-24 15:15 | DI.RAD.S_ITS ---
PROCEDURE: XR WRIST LT MIN 3V INDICATIONS: fall, L wrist pain TECHNIQUE: 3 views of the wrist were acquired. COMPARISON: None. FINDINGS: Bones: Comminuted, displaced, intra-articular fracture of the distal radius. Mildly displaced ulnar styloid process fracture. Soft tissues: No suspicious soft tissue calcifications. IMPRESSION: Comminuted, intra-articular distal radius fracture. Displaced ulnar styloid process fracture. Dictated by: Tanya Unger MD, PhD on 04/24/2023 at 15:44 Approved by: Tanya Unger MD, PhD on 04/24/2023 at 15:44
[2023-04-24] MEDS: HYDROMORPHONE 0.5 MG INJ IV ×2 (15:20→16:16)
[2023-04-24] MEDS: HYDROCODONE/ACET 5/325 TABLET 1 TAB PO (17:13)
--- NOTE | 2023-04-24 18:15 | ED_ITS ---
HPI - General Adult General Chief complaint: Extremity Injury, Upper Stated complaint: l shoulder poss dislocation Time Seen by Provider: 04/24/23 15:36 Source: patient and EMS Mode of arrival: EMS History of Present Illness HPI narrative: Patient is a 77-year-old female who is here for evaluation of left shoulder and left wrist discomfort also with a cut to her upper lip and a bloody nose. She states that she tripped over her dog who she was walking. Did not hit her head. She has no lower extremity complaints. Has discomfort with any movement of her left upper arm. She is no dental complaints. No chest pain. No shortness of breath. No abdominal pain. Related Data Home Medications Medication Instructions Recorded Confirmed Probiotic 1 cap PO DAILY ##0 09/06/17 03/20/22 ascorbic acid (vitamin C) 500 mg 1 tab PO DAILY ##0 09/06/17 03/20/22 tablet multivitamin (Multiple Vitamins 1 tab PO DAILY ##0 09/06/17 03/20/22 tablet) turmeric 1 tab PO DAILY ##0 09/06/17 03/20/22 Glucosamine Chondroitin 1 tab PO DAILY 05/21/19 03/20/22 Vitamin D3 1 cap PO DAILY 05/21/19 03/20/22 krill oil 1 cap PO DAILY 05/21/19 03/20/22 atorvastatin 10 mg tablet 10 mg PO DAILY 03/20/22 03/20/22 tramadol 50 mg tablet 50 mg PO DAILY 03/20/22 03/20/22 Previous Rx's Medication Instructions Recorded cyclobenzaprine 10 mg tablet 10 mg PO TID PRN muscle spasm #21 04/24/23 tabs hydrocodone 5 mg-acetaminophen 325 1 tab PO Q4H PRN pain #30 tabs 04/24/23 mg tablet ondansetron 4 mg disintegrating 4 mg PO Q6H PRN nausea and 04/24/23 tablet vomiting #20 tabs Allergies Allergy/AdvReac Type Severity Reaction Status Date / Time No Known Allergies Allergy Verified 04/24/23 15:21 Review of Systems Constitutional Constitutional: Reports system reviewed and no additional complaints, except as documented Cardiovascular Cardiovascular: Reports system reviewed and no additional complaints, except as documented Respiratory Respiratory: Reports system reviewed and no additional complaints, except as documented Gastrointestinal Gastrointestinal: Reports system reviewed and no additional complaints, except as documented Musculoskeletal Musculoskeletal: Reports system reviewed and no additional complaints, except as documented Neurologic Neurologic: Reports system reviewed and no additional complaints, except as documented Patient History Medical History Patient denies significant medical history Social History Smoking Status: Current some day smoker alcohol intake: current Smoking Status: Current some day smoker alcohol intake frequency: a few times a month Substance Use Type: does not use Exam Initial Vital Signs Initial Vital Signs: Vital Signs Temperature 98.6 F 04/24/23 14:55 Pulse Rate 72 04/24/23 14:55 Respiratory Rate 18 04/24/23 14:55 Blood Pressure 148/69 H 04/24/23 14:55 Pulse Oximetry 96 04/24/23 14:55 Oxygen Delivery Method Room Air 04/24/23 14:55 HENMT Head: normal to inspection and normocephalic Nose: No epistaxis Face and sinus: normal facial exam Mouth: lip abnormal (Small lack left upper lip) Resp Effort & Inspection: normal respiratory effort Cardio Rate: regular rate Pulses: radial pulses present on the left Skin General: no rashes or lesions noted Neuro General: patient alert and patient awake Sensory Exam: no sensory deficits noted Extrem Other: Patient has discomfort with palpation of her left shoulder and can not move her left shoulder. Has discomfort with movement of her left wrist. This makes it difficult to evaluate her left elbow. Her right upper extremity is unremarkable. Pelvis is stable. Lower extremities unremarkable. Procedures Orthopedic Splinting/Casting Injury #1: Side: left Upper Extremity Injury Location: shoulder and wrist Upper Extremity Immobilizer: sugar tong splint Other Orthopedic Equipment: other (Sling) Post splinting neuro exam: no change Post splinting vascular exam: no change Placed by: Nursing Course Orders Ordered: ED Orders 04/24/23 15:13 CT cervical spine wo con Stat CT head/brain wo con Stat 04/24/23 15:15 XR shoulder LT min 2V Stat XR wrist LT min 3V Stat Discontinued Medications Hydrocodone Bitart/Acetaminophen (Hydrocodone/Acet 5/325 Tablet) 1 tab PO NOW ONE Stop: 04/24/23 17:10 Last Admin: 04/24/23 17:13 Dose: 1 tab Documented By: AMV Cyclobenzaprine HCl (Cyclobenzaprine 10 Mg Tablet) 10 mg PO NOW ONE Stop: 04/24/23 19:30 Last Admin: 04/24/23 19:34 Dose: 10 mg Documented By: HNG Hydromorphone HCl (Hydromorphone 0.5 Mg Inj) 0.5 mg IV NOW ONE Stop: 04/24/23 15:15 Last Admin: 04/24/23 15:20 Dose: 0.5 mg Documented By: AMV Hydromorphone HCl (Hydromorphone 0.5 Mg Inj) 0.5 mg IV NOW ONE Stop: 04/24/23 16:14 Last Admin: 04/24/23 16:16 Dose: 0.5 mg Documented By: AMV Hydromorphone HCl (Hydromorphone 1 Mg Inj) 1 mg IV NOW ONE Stop: 04/24/23 18:35 Last Admin: 04/24/23 18:39 Dose: 1 mg Documented By: AMV Vital Signs Vital signs: Vital Signs - 8 hr 04/24/23 14:55 Temperature 98.6 F Pulse Rate 72 Respiratory Rate 18 Blood Pressure 148/69 H Pulse Oximetry 96 Oxygen Delivery Method Room Air Medical Decision Making Imaging Data Shoulder CT: Radiologist's Impression: PROCEDURE:? CT SHOULDER LEFT WITHOUT CON ? INDICATIONS:? DISLOCATION ? TECHNIQUE:? Noncontrast 1-1.5 mm thick sections acquired from the acromioclavicular joint to the inferior scapula, with coronal and sagittal reformatting.? ? COMPARISON:? [facility], CR, XR SHOULDER LT MIN 2V, 04/24/2023, 15:14. ? FINDINGS:? Image quality:? Excellent.? ? Bones:? There is an acute comminuted fracture involving left humeral head as well as surgical neck of proximal humeral shaft.? Superior and anterior migration of proximal humeral shaft is seen with up to 7 mm impaction at fracture site.? Fracture lines are seen extending to involve both greater and lesser tuberosities with medial and inferior displacement of lesser tuberosity fragment and lateral displacement of greater tuberosity fragments.? Moderate acromioclavicular joint and glenohumeral joint osteoarthritic changes are seen.? No dislocation.? No other fracture is seen.? Visualized left ribs are intact. ? Soft tissues:? There is no gross full-thickness rotator cuff tendon rupture.? Moderate amount of joint effusion is seen suggestive of hemarthrosis.? No calcified intra-articular loose bodies.? No significant rotator cuff muscle atrophy. ? ? IMPRESSION:? ? 1. Acute comminuted fracture involving left proximal humeral shaft and humeral head with multiple displaced fragments as described above consistent with a 4 part fracture. ? 2. Moderate lipohemarthrosis.? No gross calcified intra-articular loose bodies. ? 3. 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 No dislocation. ? 4. No gross full-thickness rotator cuff tendon rupture.? No significant rotator cuff muscle atrophy.? No abnormal soft tissue calcifications. CT - cervical spine: Radiologist's Impression: PROCEDURE:? CT CERVICAL SPINE WO CON ? INDICATIONS:? fall with head injury ? TECHNIQUE:? Noncontrast 3 mm thick sections acquired from the skull base to the T4 level.? Sagittal and coronal reformats were then constructed.? For radiation dose reduction, the following was used:? automated exposure control, adjustment of mA and/or kV according to patient size.? ? COMPARISON:? None. ? FINDINGS:? Image quality:? Excellent.? ? Bones:? No fractures or dislocations.? Visualized superior ribs are intact.? Multilevel degenerative changes. ? Soft tissues:? Prevertebral soft tissues are normal in thickness.? No paravertebral hematomas.? No apical pneumothoraces.? Left upper lobe pulmonary bulla is present. ? ? IMPRESSION:? Multilevel degenerative changes without visualized fracture. CT scan - head: Radiologist's Impression: PROCEDURE:? CT HEAD/BRAIN WO CON ? INDICATIONS:? fall with head injury ? TECHNIQUE:? Noncontrast 4.5 mm thick angled axial sections acquired from the foramen magnum to the vertex, with coronal and sagittal reformats.? For radiation dose reduction, the following was used:? automated exposure control, adjustment of mA and/or kV according to patient size.? ? COMPARISON:? None. ? FINDINGS:? Image quality:? Excellent.? ? CSF spaces:? Basal cisterns are patent.? No extra-axial fluid collections.? The ventricles are symmetric in size and shape.? ? Brain:? No intracranial bleeds or masses.? There is cerebral volume loss for age, with resultant ventricular and sulcal prominence.? There are periventricular and deep white matter chronic small vessel ischemic changes.? There is intracranial internal carotid artery atherosclerosis.? ? Skull and face:? Calvarium and visualized facial bones appear intact, without suspicious lesions.? ? Sinuses:? Visualized sinuses demonstrate minimal mucosal thickening. ? IMPRESSION:? ? 1. No acute intracranial process. ? 2. Moderate atrophy and chronic microvascular ischemic changes. Extremity x-ray #1: Radiologist's Impression: PROCEDURE:? XR SHOULDER LT MIN 2V ? INDICATIONS:? fall, possible dislocation ? TECHNIQUE:? 2 views of the shoulder were acquired.? ? COMPARISON:? [facility], CR, XR SHOULDER LT MIN 2V, 05/21/2019, 17:08. ? FINDINGS:? ? Bones:? Probable nondisplaced fracture of the proximal left humerus.? Visualized ribs appear intact.? ? Soft tissues:? No suspicious soft tissue calcifications.? ? IMPRESSION:? Probable nondisplaced fracture involving left proximal humerus.? Recommend CT scan of the left shoulder for additional evaluation Extremity x-ray #2: Radiologist's Impression: PROCEDURE:? XR WRIST LT MIN 3V ? INDICATIONS: fall, L wrist pain ? TECHNIQUE:? 3 views of the wrist were acquired.? ? COMPARISON:? None. ? FINDINGS:? ? Bones:? Comminuted, displaced, intra-articular fracture of the distal radius.? Mildly displaced ulnar styloid process fracture. ? Soft tissues:? No suspicious soft tissue calcifications.? ? IMPRESSION:? ? Comminuted, intra-articular distal radius fracture. ? Displaced ulnar styloid process fracture MDM Narrative Medical decision making narrative: Patient is neurovascularly intact. Her rings from her left hand were removed by nursing staff and given to the patient. She has a left proximal humerus fracture. She was placed in a sling for this. She also has a left wrist fracture. She was placed in a splint. She was informed that she is going to need to follow-up with orthopedic surgery. Was sent home with pain medication. The cut on her upper lip needs no intervention here in the ER. She does not have a bloody nose here in the ER. She was given care instructions and return precautions. She expressed understanding and agreement. Discharge Plan Departure Patient Disposition: Home Clinical Impression: Fracture of proximal end of left humerus, Left wrist fracture Instructions: How to Use a Sling, DI for Wrist Fracture, DI for Shoulder Fracture, How to Take Care of Your Splint Activity Restrictions/Additional Instructions: The splint that was placed today does need to stay on and stay clean and stay dry. You are going to need follow-up with an orthopedic surgeon. As far as your shoulder fracture the sling is for your comfort. Take the pain medication as needed. Return to the emergency department for new or worsening symptoms. Prescriptions: New hydrocodone-acetaminophen 5-325 mg tablet 1 tab PO Q4H PRN (Reason: pain) Qty: 30 0RF ondansetron 4 mg tablet,disintegrating 4 mg PO Q6H PRN (Reason: nausea and vomiting) Qty: 20 0RF cyclobenzaprine 10 mg tablet 10 mg PO TID PRN (Reason: muscle spasm) Qty: 21 0RF No Action tramadol 50 mg tablet 50 mg PO DAILY atorvastatin 10 mg tablet 10 mg PO DAILY multivitamin [Multiple Vitamins] 1 EACH tablet 1 tab PO DAILY Qty: 0 ascorbic acid (vitamin C) 500 mg Tablet 1 tab PO DAILY Qty: 0 Probiotic 1 cap PO DAILY Qty: 0 turmeric 1 tab PO DAILY Qty: 0 Glucosamine Chondroitin 1 tab PO DAILY Vitamin D3 1 cap PO DAILY krill oil 1 cap PO DAILY Referrals: Namita Gordon PA-C [Primary Care Provider] - Stand Alone Forms: Patient Portal/API
[2023-04-24] MEDS: HYDROMORPHONE 1 MG INJ IV (18:39)
--- NOTE | 2023-04-24 19:14 | PC.NURSE ---
Sugar tong and shoulder immobilizer to L arm. Educated pt how to adjust madan bandages if circulation become impaired.
[2023-04-24] MEDS: CYCLOBENZAPRINE 10 MG TABLET PO (19:34)
== END 2023-04-24 19:30 | disposition home or self-care (01) ==
PROVIDERS: Emergency Provider Emergency Medicine; PCP Physician Assistant
DX: S42.202A Unspecified fracture of upper end of left humerus, initial encounter for closed fracture (principal); S62.102A Fracture of unspecified carpal bone, left wrist, initial encounter for closed fracture; W01.0XXA Fall on same level from slipping, tripping and stumbling without subsequent striking against object, initial encounter; S01.511A Laceration without foreign body of lip, initial encounter; R04.0 Epistaxis; S09.90XA Unspecified injury of head, initial encounter
CPT/HCPCS: 29125; 70450; 72125; 73030; 73110; 73200; 96374; 96376; 99284; J1170

== ENCOUNTER 2023-10-07 10:48 | Emergency (ER) | payer MEDICARE, OTHER, SELFPAY ==
[2023-10-07 11:20] VITALS: BP 163/71; PULSE 97; RESP 18; TEMP 36.8; O2SAT 97; BMI 25.1
--- NOTE | 2023-10-07 13:27 | ED_ITS ---
HPI - URI/Sore Throat <Shereen Brooks PA-C - Last Filed: 10/07/23 13:31> General Chief Complaint: Upper Respiratory Symptoms Stated Complaint: sinus infection per pt Time Seen by Provider: 10/07/23 11:17 Source: patient Mode of arrival: Ambulatory History of Present Illness HPI Narrative: 78-year-old female presents to the ED with 6 days of URI symptoms including fatigue, cough, nasal congestion, nasal discharge, sinus pressure/pain, headache. Patient denies fever, chills, chest pain, shortness of breath, nausea, vomiting, lightheadedness, dizziness, syncope. Patient also complains of right-sided ear discomfort. Related Data Home Medications Medication Instructions Recorded Confirmed Probiotic 1 cap PO DAILY ##0 09/06/17 03/20/22 ascorbic acid (vitamin C) 500 mg 1 tab PO DAILY ##0 09/06/17 03/20/22 tablet multivitamin (Multiple Vitamins 1 tab PO DAILY ##0 09/06/17 03/20/22 tablet) turmeric 1 tab PO DAILY ##0 09/06/17 03/20/22 Glucosamine Chondroitin 1 tab PO DAILY 05/21/19 03/20/22 Vitamin D3 1 cap PO DAILY 05/21/19 03/20/22 krill oil 1 cap PO DAILY 05/21/19 03/20/22 atorvastatin 10 mg tablet 10 mg PO DAILY 03/20/22 03/20/22 tramadol 50 mg tablet 50 mg PO DAILY 03/20/22 03/20/22 Previous Rx's Medication Instructions Recorded cyclobenzaprine 10 mg tablet 10 mg PO TID PRN muscle spasm #21 04/24/23 tabs hydrocodone 5 mg-acetaminophen 325 1 tab PO Q4H PRN pain #30 tabs 04/24/23 mg tablet ondansetron 4 mg disintegrating 4 mg PO Q6H PRN nausea and 04/24/23 tablet vomiting #20 tabs benzonatate 200 mg capsule 200 mg PO TID PRN cough #30 caps 10/07/23 Allergies Allergy/AdvReac Type Severity Reaction Status Date / Time No Known Allergies Allergy Verified 04/24/23 15:21 Review of Systems <Shereen Brooks PA-C - Last Filed: 10/07/23 13:31> Constitutional Constitutional: Denies chills, Reports fatigue, Denies fever(s), Denies frequent falls, Reports headache(s), Denies lethargy and Denies weakness Eyes Eyes: Denies change in vision, Denies eye discharge, Denies irritation and Denies loss of vision ENT Ears, Nose, Mouth, and Throat: Denies change in voice, Denies dizziness, Reports headache(s), Reports nasal congestion, Reports nasal discharge, Denies neck pain, Reports sinus pain, Denies sore throat and Denies throat swelling Cardiovascular Cardiovascular: Denies chest pain, Denies irregular heart rhythm, Denies lightheadedness, Denies palpitations, Denies dyspnea, Denies dyspnea on exertion and Denies orthopnea Respiratory Respiratory: Reports cough, Denies dyspnea, Denies dyspnea on exertion and Denies wheezing Gastrointestinal Gastrointestinal: Denies abdominal pain, Denies change in bowel habits, Denies diarrhea, Denies nausea and Denies vomiting Musculoskeletal Musculoskeletal: Denies neck pain and Denies numbness Integumentary/Breasts Skin/Breast: Denies pruritus, Denies erythema, Denies rash and Denies wounds Neurologic Neurologic: Denies behavioral changes, Denies confusion, Denies dizziness, De nies frequent falls, Reports headache(s), Denies loss of vision, Denies numbness and Denies weakness Psychiatric Psychiatric: Denies anxiety, Denies behavioral changes, Denies confusion, Denies depression, Denies homicidal ideation and Denies suicidal ideation Endocrine Endocrine: Reports fatigue, Denies flushing and Denies palpitations Hematologic/Lymphatic Hematologic/Lymphatic: Denies easy bruising Allergic/Immunologic Allergic/Immunologic: Denies urticaria, Denies throat swelling and Denies wheezing Patient History <Shereen Brooks PA-C - Last Filed: 10/07/23 13:31> Medical History Patient denies significant medical history Social History Smoking Status: Former smoker alcohol intake: current Smoking Status: Former smoker alcohol intake frequency: other Substance Use Type: does not use Exam <Shereen Brooks PA-C - Last Filed: 10/07/23 13:31> Narrative Exam Narrative: Const General:?cooperative, healthy appearing and comfortable [facility] Head:?normal to inspection Ears:?hearing grossly normal bilaterally; bilateral tympani normal Nose:?external nose normal Face and sinus:?normal facial exam and sinuses nontender Mouth:?oral mucosae normal Throat:?posterior oropharynx normal Eyes General:?appearance normal, both eyes and all related structures Neck Neck:?normal visual inspection and no lymphadenopathy noted Resp Effort & Inspection:?normal respiratory effort Auscultation:?clear to auscultation bilaterally Cardio Rate:?regular rate Rhythm:?regular rhythm Neuro General:?patient alert, patient awake and patient oriented x3 Initial Vital Signs Initial Vital Signs: Vital Signs Temperature 98.2 F 10/07/23 11:20 Pulse Rate 97 H 10/07/23 11:20 Respiratory Rate 18 10/07/23 11:20 Blood Pressure 163/71 H 10/07/23 11:20 Pulse Oximetry 97 10/07/23 11:20 Oxygen Delivery Method Room Air 10/07/23 11:20 <Mehrdad Maher MD - Last Filed: 10/17/23 10:05> Initial Vital Signs Initial Vital Signs: Vital Signs Temperature 98.2 F 10/07/23 11:20 Pulse Rate 97 H 10/07/23 11:20 Respiratory Rate 18 10/07/23 11:20 Blood Pressure 163/71 H 10/07/23 11:20 Pulse Oximetry 97 10/07/23 11:20 Oxygen Delivery Method Room Air 10/07/23 11:20 Course <Shereen Brooks PA-C - Last Filed: 10/07/23 13:31> Vital Signs Vital signs: Vital Signs - 8 hr 10/07/23 11:20 Temperature 98.2 F Pulse Rate 97 H Respiratory Rate 18 Blood Pressure 163/71 H Pulse Oximetry 97 Oxygen Delivery Method Room Air <Mehrdad Maher MD - Last Filed: 10/17/23 10:05> Vital Signs Vital signs: Vital Signs - 8 hr 10/07/23 11:20 Temperature 98.2 F Pulse Rate 97 H Respiratory Rate 18 Blood Pressure 163/71 H Pulse Oximetry 97 Oxygen Delivery Method Room Air MDM - URI/Sore Throat <Shereen Brooks PA-C - Last Filed: 10/07/23 13:31> MDM Narrative Medical decision making narrative: 78-year-old female presents to the ED with 6 days of URI symptoms including fatigue, cough, nasal congestion, nasal discharge, sinus pressure/pain, headache. Concern for viral URI versus otitis media versus other. Bilateral tympani normal on exam. No fevers or chills. Unlikely sinusitis. Patient's symptoms most consistent with a viral URI. Discussed findings with patient. Recommend supportive measures including Tylenol, Aleve, unuy-kia-fjamkej cough medicines such as Robitussin or Mucinex. Also prescribed Tessalon Perles for cough. Recommend good hydration and rest. Recommend follow-up with PCP as soon as possible. ED return precautions discussed with patient. Patient verbalized understanding. Medical records reviewed: Yes Discharge Plan Departure Patient Disposition: Home Clinical Impression: Upper respiratory infection Qualifiers: URI type: unspecified viral URI Qualified Code(s): J06.9 - Acute upper respiratory infection, unspecified Instructions: DI for Viral Upper Respiratory Infection -- Adult Activity Restrictions/Additional Instructions: Were evaluated in the ED today for nasal congestion and a cough. It appears that you have a viral upper respiratory infection that is causing your symptoms. You may take Tylenol, Aleve for aches and pains. You may take Mucinex, Robitussin or other [id number]-[id number] cough medications for your cough. You were also being prescribed Tessalon Perles for cough which you may take as prescribed. Please continue to drink lots of water and get sufficient rest. The viral infection will run its course and you will start feeling better over the next several days. Return to the ED if you have worsening symptoms, chest pain, shortness of breath. Prescriptions: New benzonatate 200 mg capsule 200 mg PO TID PRN (Reason: cough) Qty: 30 0RF No Action tramadol 50 mg tablet 50 mg PO DAILY atorvastatin 10 mg tablet 10 mg PO DAILY multivitamin [Multiple Vitamins] 1 EACH tablet 1 tab PO DAILY Qty: 0 ascorbic acid (vitamin C) 500 mg Tablet 1 tab PO DAILY Qty: 0 Probiotic 1 cap PO DAILY Qty: 0 turmeric 1 tab PO DAILY Qty: 0 hydrocodone-acetaminophen 5-325 mg tablet 1 tab PO Q4H PRN (Reason: pain) Qty: 30 0RF ondansetron 4 mg tablet,disintegrating 4 mg PO Q6H PRN (Reason: nausea and vomiting) Qty: 20 0RF cyclobenzaprine 10 mg tablet 10 mg PO TID PRN (Reason: muscle spasm) Qty: 21 0RF Glucosamine Chondroitin 1 tab PO DAILY Vitamin D3 1 cap PO DAILY krill oil 1 cap PO DAILY Referrals: Namita Gordon PA-C [Primary Care Provider] - Stand Alone Forms: Patient Portal/API ED Sign-out <Mehrdad Maher MD - Last Filed: 10/17/23 10:05> Cosign ED Attending Cosignature Attestation: I was immediately available in the department for consultation. This documentation has been reviewed and I agree with assessment and plan. Supervised by Mehrdad Maher MD
== END 2023-10-07 11:53 | disposition home or self-care (01) ==
PROVIDERS: Emergency Provider Student in an Organized Health Care Education/Training Program; PCP Physician Assistant
DX: J06.9 Acute upper respiratory infection, unspecified (principal); Z87.891 Personal history of nicotine dependence
CPT/HCPCS: 99281; 99282

== ENCOUNTER → 2024-08-08 12:30 | Outpatient (CLI) | payer MEDICARE, OTHER, SELFPAY ==
--- NOTE | 2024-08-08 12:33 | DI.RAD.S_ITS ---
PROCEDURE: XR WRIST LT MIN 3V INDICATIONS: TRAUMATIC SPRAIN TECHNIQUE: 4 views of the wrist were acquired. COMPARISON: Located Within [facility], CR, XR WRIST 3+ VIEWS LEFT, 11/29/2023, 11:15. [facility], CR, XR WRIST LT MIN 3V, 04/24/2023, 15:14. FINDINGS: Bones: Postsurgical changes are again seen from distal radial fracture fixation. Hardware appears intact with unchanged alignment. No new osseous abnormality identified. Generalized osteopenia. Background arthritic changes most notable at the 1st carpometacarpal joint. Soft tissues: No suspicious soft tissue calcifications. IMPRESSION: Stable postsurgical changes at the distal right radius. No new osseous abnormality. Approved by: Farooq Morrison M.D. on 08/08/2024 at 13:05
== END ==
PROVIDERS: PCP Physician Assistant; Referring Provider Chiropractor; Visit Provider Chiropractor
DX: S63.92XA Sprain of unspecified part of left wrist and hand, initial encounter (principal); S52.502S Unspecified fracture of the lower end of left radius, sequela; X58.XXXA Exposure to other specified factors, initial encounter
CPT/HCPCS: 73110

== ENCOUNTER → 2025-01-28 07:19 | Outpatient (CLI) | payer MEDICARE, OTHER, SELFPAY ==
--- NOTE | 2025-01-28 07:20 | DI.US.S_ITS ---
PROCEDURE: US ABDOMEN LIMITED INDICATIONS: ELEV LFTS TECHNIQUE: Real-time scanning was performed of the abdominal and retroperitoneal organs, with image documentation. COMPARISON: [facility], , US ABDOMEN LIMITED, 10/11/2022, 8:42. FINDINGS: Liver: Liver is normal in size. Mildly increased liver parenchymal echotexture is seen. No discrete hepatic lesion. Gallbladder: No gallstones. No gallbladder wall thickening or pericholecystic fluid. No sonographic Bass sign. Biliary ducts: Intrahepatic bile ducts are non-dilated. Extrahepatic bile duct caliber measures 5.4 mm. Normal is 6-7 mm or less in diameter, or 10 mm or less post-cholecystectomy. Pancreas: Visualized portions of the pancreas are sonographically normal. Miscellaneous: No free abdominal fluid. IMPRESSION: Very mild hepatic steatosis. No discrete hepatic lesion. Normal appearing gallbladder. No biliary ductal dilatation. Normal appearing pancreas. Dictated by: Gallo Robertson M.D. on 01/28/2025 at 15:42 Approved by: Gallo Robertson M.D. on 01/28/2025 at 15:42
== END ==
PROVIDERS: PCP Physician Assistant; Referring Provider Physician Assistant; Visit Provider Physician Assistant
DX: K76.0 Fatty (change of) liver, not elsewhere classified (principal); R79.89 Other specified abnormal findings of blood chemistry; R74.8 Abnormal levels of other serum enzymes
CPT/HCPCS: 76705

== ENCOUNTER → 2025-03-08 14:30 | Outpatient (CLI) | payer MEDICARE, OTHER, SELFPAY ==
--- NOTE | 2025-03-08 14:33 | DI.MRI.S_ITS ---
PROCEDURE: MR CERVICAL SPINE WO CON INDICATIONS: Neck pain TECHNIQUE: Noncontrast sagittal T1 spin echo and T2 fast spin echo, sagittal STIR, foraminal oblique sagittal T2 fast spin echo, and axial gradient echo or T2 fast spin echo through the cervical spine. COMPARISON: None. FINDINGS: Image quality: Excellent. Alignment and Curvature: There is normal bony alignment. Bone Marrow: Marrow demonstrates normal overall signal. Spinal Cord: Visualized spinal cord has normal size and signal. No cerebellar tonsillar herniation. Paraspinous Soft Tissues: No paravertebral masses. Prevertebral soft tissues are normal in thickness. C2-C3: No central canal stenosis. Mild facet uncovertebral arthropathy. No significant neural foraminal stenosis. C3-C4: Disc desiccation and minimal posterior disc osteophyte complex. Facet uncovertebral arthropathy. [id number]-ug-[id number] bilateral neural foraminal stenosis. C4-C5: Disc desiccation mild height loss. Posterior disc osteophyte complex. Facet uncovertebral arthropathy. Mild central canal stenosis. Moderate to severe bilateral neural foraminal stenosis. C5-C6: Disc desiccation and mild height loss. Posterior disc osteophyte complex. Facet and uncovertebral arthropathy. Mild central canal stenosis. Moderate to severe bilateral neural foraminal stenosis. C6-C7: Disc desiccation. Facet and uncovertebral arthropathy. No significant central canal stenosis. Moderate to severe left and mild right neural foraminal stenosis. C7-T1: No significant central canal or neural foraminal stenosis. IMPRESSION: 1. Multilevel degenerative changes of the cervical spine as described above. 2. Mild central canal stenosis at C4-C5 and C5-C6. 3. Moderate to severe neural foraminal stenosis bilaterally at C4-C5 and C5-C6 and on the left at C6-C7. Dictated by: Thomas Bach M.D. on 03/09/2025 at 11:47 Approved by: Thomas Bach M.D. on 03/09/2025 at 11:50
== END ==
PROVIDERS: PCP Physician Assistant; Referring Provider Physician Assistant; Visit Provider Physician Assistant
DX: M48.02 Spinal stenosis, cervical region (principal); M47.812 Spondylosis without myelopathy or radiculopathy, cervical region; M54.2 Cervicalgia; G89.29 Other chronic pain; Z79.891 Long term (current) use of opiate analgesic
CPT/HCPCS: 72141

== ENCOUNTER 2025-04-07 09:01 | Outpatient (CLI) | payer MEDICARE, OTHER, SELFPAY ==
[2025-04-07] VITALS (9 sets, daily range): BP systolic 103–167; BP diastolic 55–77; PULSE 53–61; RESP 13–18; TEMP 36.2; O2SAT 97–100
[2025-04-07] MEDS: MIDAZOLAM 2 MG/2 ML VIAL IV (10:27)
[2025-04-07] MEDS: BUPIVACAINE 0.25% (PF) VIAL 2 ML INJ (10:31)
[2025-04-07] MEDS: DEXAMETHASONE 10 MG/ML VIAL 20 MG INJ (10:32)
[2025-04-07] MEDS: MIDAZOLAM 2 MG/2 ML VIAL 1 MG IV (10:34)
--- NOTE | 2025-04-07 10:55 | P.PCN_ITS ---
Date/Time/Diagnoses Date of procedure: 04/07/25 Time of procedure: 10:55 Pre-procedure diagnosis: 1. CERVICAL STENOSIS, 2. CERVICAL HNP WITH UPPER EXTREMITY RADICULAR FEATURES Post-procedure diagnosis: same Procedure Notes Procedure: 1. FLUORSCOPICALLY GUIDED CONTRAST CONTROLLED INTERLAMINAR EPIDURAL STEROID INJECTION - C6/7 TL WOODY Indications: Mer is referred by Dr. Panchal for treatment of Cervical HNP with Upper Extremity Paresthesias. Physician: Nahum Cline Total Fluoroscopy time (seconds): 34 Total sedation minutes: 2 Complications: none Procedure in detail & Post-procedure care: FINDINGS Cervical Stenosis due to disc deterioration and nerve root irritation and nerve root irritation DESCRIPTION OF PROCEDURE Fluoroscopically guided, contrast-controlled C6/7 translaminar epidural steroid injection with conscious sedation. Following review of allergy and review of potential side effects and complications, including, but not necessarily limited to, infection, allergic reaction, local tissue breakdown, temporary as well as permanent nerve injury, stroke, paralysis, and possible , the patient indicated that patient understood and agreed to proceed. An informed consent document was signed by the patient, witnessed by a nurse, and placed in the patient's chart. Additionally, other treatment options including modalities, medications, and physical therapy were reviewed with the patient. After review of previous anaesthesic history and IV conscious sedation the patient was deemed safe to proceed with today?s procedure with IV conscious sedation as ASA class II designation. Safety time-out was performed to confirm patient ID, procedure to be performed and site of procedure. IV sedation was accomplished with a combination of 3mg of Versed administered by the RN after DO order, titrated to patient comfort during the course of the procedure while the patient remained responsive to all verbal commands. In the prone position, following sterile prep and drape of the cervical region, the C6/7 translaminar space was identified fluoroscopically. The skin was anesthetized via a 25-gauge 1.5-inch needle with 1% lidocaine solution. At this point, a 25-gauge, 2.5-inch short bevel spinal needle was atraumatically introduced and advanced under fluoroscopic guidance into epidural space at the C6/7 translaminar space. Depth was confirmed on lateral view. Radiological data, including multiple fluoroscopic views of the cervical spine, reveal a spinal needle at the C6/7 translaminar space. Lateral views then show placement of the needle in the epidural space. Subsequent views show contrast material flowing superiorly and inferiorly in the epidural space. DSA fluoroscopy with live contrast injection, once again, confirmed no vascular or intrathecal uptake. At this point, using loss of resistance technique with saline and air, the epidural space was entered. Following negative aspiration, injection of approximately 1.5 cc of Isovue-200 with live fluoroscopy in the AP view confirmed epidural flow in the epidural space without vascular or intrathecal uptake observed. Subsequently, a test dose of 1 cc of 1% lidocaine solution was injected and patient was observed for two minutes without signs or symptoms of complications, including abdominal pain, shortness of breath, bilateral upper or lower extremity weakness, nausea and vomiting, prior to steroid injection. At this point, 2cc or 20mg of dexamethasone was then injected without incident. The patient tolerated the procedure well without signs or symptoms of compl ications prior to being transferred to the recovery area for further monitoring, The patient was then transferred to the recovery area where they were observed for an appropriate period of time after the injection. The patient reported a VAS score of 6 prior to the procedure and a post-procedure VAS of 0. POST OP INSTRUCTIONS The patient was provided a Pain Log to continue to record their response to the target-specific procedure prior to follow-up visit with the referring provider. Additionally, specific post-injection care instructions and a contact number to our office were provided if concerns arise regarding possible complications associated with the procedure are suspected.
== END 2025-04-07 11:08 | disposition home or self-care (01) ==
LOC: RAD 09:03
PROVIDERS: PCP Obstetrics & Gynecology; Referring Provider Obstetrics & Gynecology; Visit Provider Physical Medicine & Rehabilitation
DX: M48.02 Spinal stenosis, cervical region (principal); M50.123 Cervical disc disorder at C6-C7 level with radiculopathy
CPT/HCPCS: 62321; 99152; J1100; J2250

== ENCOUNTER 2025-05-03 16:25 | Emergency (ER) | payer MEDICARE, OTHER, SELFPAY ==
[2025-05-03 16:30] VITALS: BP 147/80; PULSE 69; RESP 17; TEMP 36.8; O2SAT 98; BMI 25.7
[2025-05-03 18:23] LABS: Add Manual Diff / Slide Review NO; Hematocrit 42.9 % (36-46); Hemoglobin 14.6 g/dL (12.0-16.0); Lymphocytes Absolute Auto 1300 /uL (1100-4500); Mean Corpuscular HGB Conc 33.9 % (30-36); Mean Corpuscular Hemoglobin 31.6 PG (26-34); Mean Corpuscular Volume 93.1 fL (80-100); Platelet Count 220 X10^3/uL (150-400)
[2025-05-03 18:30] LABS: INR 1.0 (0.9-1.3); Prothrombin Time 11.6 SECONDS (9.4-12.5)
[2025-05-03 18:33] LABS: Alanine Aminotransferase 69 IU/L (<35); Albumin 4.5 g/dL (3.5-5.0); Albumin Globulin Ratio 1.5 (1.0-2.8); Alkaline Phosphatase 72 U/L (38-126); Blood Urea Nitrogen 18 mg/dL (7-17); Calcium 9.6 mg/dL (8.4-10.2); Carbon Dioxide 27 mmol/L (22-32); Chloride 106 mmol/L (98-107); Estimated Glomerular Filt Rate > 60 mL/min (>60); Globulin 3.1 g/dL (1.7-4.1); Glucose 104 mg/dL (70-99); HEMOLYSIS 18 (0-50); PTT Partial Thromboplastin Tim 27 SECONDS (25.1-36.5); Potassium 4.5 mmol/L (3.4-5.1); Sodium 140 mmol/L (137-145); Total Protein 7.6 g/dL (6.3-8.2)
[2025-05-03 18:42] LABS: Culture Indicated Urine Cult Not Indicated
--- NOTE | 2025-05-03 19:06 | PC.NURSE ---
Patient requesting to leave. Educated on risk vs benefit, encouraged her to stay. Patient asserts that she wants to leave. Educated her to return any time. IV removed intact.
[2025-05-03 19:17] LABS: Clostridium difficile toxin AB Detected (Not Detect); Enteroaggregative E.coli Not Detected (Not Detect); Enteropathogenic E.coli Not Detected (Not Detect); Enterotoxigenic E.coli It/st Not Detected (Not Detect); Plesiomonsa shigelloides Not Detected (Not Detect); Shiga-like toxin-prod E.coli Not Detected (Not Detect)
[2025-05-06 14:09] LABS: C difficie Toxins A and B, EIA Negative (Negative)
== END 2025-05-03 19:08 | disposition left against medical advice (07) ==
PROVIDERS: Emergency Medicine; Emergency Provider Emergency Medicine; PCP Obstetrics & Gynecology
DX: R10.30 Lower abdominal pain, unspecified (principal); R19.7 Diarrhea, unspecified
CPT/HCPCS: 36415; 80053; 81003; 81015; 85025; 85610; 85730; 87324; 87507; 99283

== ENCOUNTER 2025-08-27 08:49 | Outpatient (CLI) | payer MEDICARE, OTHER, SELFPAY ==
[2025-08-27] VITALS (8 sets, daily range): BP systolic 92–144; BP diastolic 50–64; PULSE 54–62; RESP 16–19; TEMP 36.5; O2SAT 95–99
[2025-08-27] MEDS: MIDAZOLAM 2 MG/2 ML VIAL IV (10:45)
--- NOTE | 2025-08-27 11:01 | P.PCN_ITS ---
Date/Time/Diagnoses Date of procedure: 08/27/25 Time of procedure: 11:01 Pre-procedure diagnosis: 1. CERVICAL STENOSIS, 2. CERVICAL HNP WITH UPPER EXTREMITY RADICULAR FEATURES Post-procedure diagnosis: same Procedure Notes Procedure: 1. FLUORSCOPICALLY GUIDED CONTRAST CONTROLLED INTERLAMINAR EPIDURAL STEROID INJECTION - C6/7 TL WOODY Indications: Mer is referred by Dr. Panchal for treatment of Cervical HNP with Upper Extremity Paresthesias. Physician: Nahum Cline Total Fluoroscopy time (seconds): 32 Total sedation minutes: 12 Complications: none Procedure in detail & Post-procedure care: FINDINGS Cervical Stenosis due to disc deterioration and nerve root irritation and nerve root irritation DESCRIPTION OF PROCEDURE Fluoroscopically guided, contrast-controlled C6/7 translaminar epidural steroid injection with conscious sedation. Following review of allergy and review of potential side effects and complications, including, but not necessarily limited to, infection, allergic reaction, local tissue breakdown, temporary as well as permanent nerve injury, stroke, paralysis, and possible , the patient indicated that patient understood and agreed to proceed. An informed consent document was signed by the patient, witnessed by a nurse, and placed in the patient's chart. Additionally, other treatment options including modalities, medications, and physical therapy were reviewed with the patient. After review of previous anaesthesic history and IV conscious sedation the patient was deemed safe to proceed with today?s procedure with IV conscious sedation as ASA class II designation. Safety time-out was performed to confirm patient ID, procedure to be performed and site of procedure. IV sedation was accomplished with a combination of 2mg of Versed administered by the RN after DO order, titrated to patient comfort during the course of the procedure while the patient remained responsive to all verbal commands. In the prone position, following sterile prep and drape of the cervical region, the C6/7 translaminar space was identified fluoroscopically. The skin was anesthetized via a 25-gauge 1.5-inch needle with 1% lidocaine solution. At this point, a 25-gauge, 2.5-inch short bevel spinal needle was atraumatically introduced and advanced under fluoroscopic guidance into epidural space at the C6/7 translaminar space. Depth was confirmed on lateral view. Radiological data, including multiple fluoroscopic views of the cervical spine, reveal a spinal needle at the C6/7 translaminar space. Lateral views then show placement of the needle in the epidural space. Subsequent views show contrast material flowing superiorly and inferiorly in the epidural space. DSA fluoroscopy with live contrast injection, once again, confirmed no vascular or intrathecal uptake. At this point, using loss of resistance technique with saline and air, the epidural space was entered. Following negative aspiration, injection of approximately 1.5 cc of Isovue-200 with live fluoroscopy in the AP view confirmed epidural flow in the epidural space without vascular or intrathecal uptake observed. Subsequently, a test dose of 1 cc of 1% lidocaine solution was injected and patient was observed for two minutes without signs or symptoms of complications, including abdominal pain, shortness of breath, bilateral upper or lower extremity weakness, nausea and vomiting, prior to steroid injection. At this point, 2cc or 20mg of dexamethasone was then injected without incident. The patient tolerated the procedure well without signs or symptoms of comp lications prior to being transferred to the recovery area for further monitoring, The patient was then transferred to the recovery area where they were observed for an appropriate period of time after the injection. The patient reported a VAS score of 6 prior to the procedure and a post-procedure VAS of 0. POST OP INSTRUCTIONS The patient was provided a Pain Log to continue to record their response to the target-specific procedure prior to follow-up visit with the referring provider. Additionally, specific post-injection care instructions and a contact number to our office were provided if concerns arise regarding possible complications associated with the procedure are suspected.
== END 2025-08-27 11:19 | disposition home or self-care (01) ==
LOC: RAD 08:50
PROVIDERS: PCP Obstetrics & Gynecology; Referring Provider Physical Medicine & Rehabilitation; Visit Provider Physical Medicine & Rehabilitation
DX: M48.02 Spinal stenosis, cervical region (principal); M50.123 Cervical disc disorder at C6-C7 level with radiculopathy
CPT/HCPCS: 62321; 99152; J1100; J2250